=== PATIENT | male | born 1950 | race Caucasian/White ===

== ENCOUNTER 2018-12-27 00:43 | Inpatient (IN) | payer OTHER ==
[2018-12-27] VITALS (10 sets, daily range): BP systolic 121–169; BP diastolic 80–109; PULSE 65–94; RESP 18–20; Ht 165.1 cm; Wt 65.7 kg
[~2018-12-27] VITALS: Ht 165.1 cm; Wt 65.7 kg
[2018-12-27] MEDS ORDERED: SOD CHLORIDE 0.9% 500 ML IV STA (00:55)
[2018-12-27] MEDS ORDERED: LEVETIRACETAM 1000 MG (PMX) 100 ML IVPB ONE (01:30)
--- NOTE | 2018-12-27 01:33 | ERD ---
ER Documentation Chief Complaint Chief Complaint DEVIN GARCIA,from home,sz 15 min per EMS,Versed administered by EMS,KILO MEJIA This is a 68-year-old male with a reported history of seizures on Keppra who is presenting with a seizure. The patient reportedly had focal right-sided tonic- clonic shaking lasting over 15 minutes. The patient was given a total of 10 mg of Versed prior to arrival to the emergency department. The patient continued to seize when he first came to the emergency department, but it resolved prior to any medications being provided in the ER. The patient is currently altered and unable to provide any history. The patient does not have any facial droop, but he currently does not move the right side of his body where the seizure took place. The patient groans on painful stimulus, but he is confused and not currently making any comprehensible sounds. History and physical is limited secondary to altered mentation. ROS All systems reviewed and are negative except as per history of present illness. Allergies Allergies: Coded Allergies: Unknown: Unable to obtain (Unverified , 12/27/18) PMhx/Soc Limited secondary to altered mental status Medical and Surgical Hx: Unable to obtain Hx Neurological Disorder: Yes (Seizure disorder) Smoking Status: Unknown if ever smoked FmHx Unable to obtain secondary to altered mental status Physical Exam Vitals Vital Signs Date Temp Pulse Resp B/P (MAP) Pulse Ox O2 O2 Flow FiO2 Time Delivery Rate 12/27/18 84 18 123/93 100 Nasal 2.0 02:40 (103) Cannula 12/27/18 Nasal 2 01:42 Cannula 12/27/18 98.3 83 15 217/109 97 00:48 (145) Physical Exam Const: Well-developed, well-nourished, lethargic Head: Normocephalic, Atraumatic Eyes: Normal Conjunctiva. Pupils equal, round and reactive to light ENT: Normal External Ears, Nose and Mouth. Neck: Full range of motion. No meningismus. Resp: Clear to auscultation bilaterally, No wheezes, rales or rhonchi Cardio: Regular rate and rhythm. No murmurs, rubs or gallops Abd: Soft, non tender, non distended. Normal bowel sounds Skin: No petechiae or rashes Back: No midline tenderness. No CVA tenderness Ext: No cyanosis, or edema Neur: Lethargic. No facial droop. Opens eyes to painful stimulus. Makes incomprehensible sounds. Localizes the pain with the left side. Right-sided hemiparesis. Psych: Normal Mood and Affect Result Diagram: 12/27/1810312/27/18103 Results 24 hrs Laboratory Tests Test 12/27/18 00:30 12/27/18 00:57 12/27/18 01:04 12/27/18 02:30 Activated 31.6 Sec Partial Thrombopl ast Time Hemoglobin A1c 6.3 % Creatine Kinase 47 IU/L Creatinine Kinase 0.43 ng/ml MB (Mass) Bedside Glucose 113 mg/dL White Blood Count 4.2 10^3/ul Red Blood Count 4.95 10^6/ul Hemoglobin 14.3 g/dl Hematocrit 44.9 % Mean Corpuscular 90.7 fl Volume Mean Corpuscular 28.9 pg Hemoglobin Mean Corpuscular 31.8 g/dl Hemoglobin Concen t Red Cell 13.4 % Distribution Width Platelet Count 164 10^3/UL Mean Platelet 9.8 fl Volume Immature 0.200 % Granulocytes % Neutrophils % 67.5 % Lymphocytes % 23.7 % Monocytes % 6.2 % Eosinophils % 2.2 % Basophils % 0.2 % Nucleated Red 0.0 /100WBC Blood Cells % Immature 0.010 10^3/ul Granulocytes # Neutrophils # 2.8 10^3/ul Lymphocytes # 1.0 10^3/ul Monocytes # 0.3 10^3/ul Eosinophils # 0.1 10^3/ul Basophils # 0.0 10^3/ul Nucleated Red 0.0 10^3/ul Blood Cells # Prothrombin Time 13.3 Sec Prothrombin Time 1.0 Ratio INR International 1.00 Normalized Ratio Sodium Level 142 mmol/L Potassium Level 3.8 mmol/L Chloride Level 105 mmol/L Carbon Dioxide 21 mmol/L Level Anion Gap 16 Blood Urea 18 mg/dl Nitrogen Creatinine 1.24 mg/dl Est Glomerular 58 mL/min Filtrat Rate mL/min Glucose Level 109 mg/dl Calcium Level 9.0 mg/dl Total Bilirubin 0.3 mg/dl Direct Bilirubin 0.00 mg/dl Indirect 0.3 mg/dl Bilirubin Aspartate Amino 24 IU/L Transf (AST/SGOT) Alanine 20 IU/L Aminotransferase (ALT/SGPT) Alkaline 57 IU/L Phosphatase Troponin I 0.012 ng/ml Total Protein 6.6 g/dl Albumin 3.7 g/dl Globulin 2.90 g/dl Albumin/Globulin 1.27 Ratio Ethyl Alcohol < 10.0 mg/dl Level Urine Color YELLOW Urine Clarity CLEAR Urine pH 6.0 Urine Specific 1.010 [place] Urine Ketones NEGATIVE mg/dL Urine Nitrite NEGATIVE mg/dL Urine Bilirubin NEGATIVE mg/dL Urine NEGATIVE mg/dL Urobilinogen Urine Leukocyte NEGATIVE Jamie/ul Esterase Urine Hemoglobin NEGATIVE mg/dL Urine Glucose 1+ mg/dL Urine Total NEGATIVE mg/dl Protein Urine Opiates Negative Screen Urine Negative Barbiturates Urine Negative Amphetamines Screen Urine Positive Benzodiazepines Screen Urine Cocaine Negative Screen Urine Negative Cannabinoids Current Medications Medications Dose Sig/Rao Start Time Status Last (Trade) Ordered Route PRN Stop Time Admin Dose Reason Admin Sodium 500 ml @ Q1H STAT 12/27/18 DC 12/27/18 Chloride 500 mls/hr IV 00:55 01:11 12/27/18 01:54 100 ml @ ONCE ONCE 12/27/18 DC 12/27/18 Levetiracetam 400 mls/hr IVPB 01:30 01:51 12/27/18 01:44 Aspirin 324 mg ONCE ONCE 12/27/18 (Aspirin) PO 04:30 12/27/18 04:31 Ondansetron 4 mg ER BRIDGE 12/27/18 HCl (Zofran PRN IV 04:30 Inj) NAUSEA/VOMITI 12/28/18 04:29 NG 650 mg ER BRIDGE 12/27/18 Acetaminophen PRN PO 04:30 (Tylenol .MILD PAIN 12/28/18 04:29 Tab) 1-3 OR TEMP Procedures/MDM MDM The patient's presentation warrants further investigation. Previous medical records, if available, were reviewed. LABS The patient's laboratory testing was obtained and reviewed. No emergent treatment was required unless described below. CBC: No E/o of systemic infection or severe anemia or thrombocytopenia CMP: No E/o severe acidosis or alkalosis or renal failure or liver disease or diabetic ketoacidosis PT/INR: No E/o significant coagulopathy Troponin: No E/o acute ischemia Urine: No E/o acute infection or hematuria Tox: No E/o alcohol abuse. E/o benzodiazepine use, given by EMS. No other illicit drug use. EKG EKG read by me: Rate/Rhythm: Regular rate and rhythm at a rate of 77 bpm Intervals: Normal Daisy: Normal Impression: Nonspecific repolarization changes without evidence of acute ischemia or arrhythmia IMAGING Imaging and Radiology interpretation reviewed. CXR FINDINGS: The patient status post sternotomy. Heart is enlarged.. There is no congestive heart failure.. There is hypoventilation with atelectasis greatest at the right lower lobe.. There is no pleural effusion. There is no pneumothorax. The osseous structures are unremarkable. IMPRESSION: Cardiomegaly. Hypoventilation with basilar atelectasis. Status post sternotomy. Electronically viewed and signed by .Monroe Humphrey MD, on 12/27/2018 01:47 CT Head 1. Large old left middle cerebral artery infarct with extensive left frontal, insular, temporal and parietal encephalomalacia. Hyperdense branch of the left middle cerebral artery within the sylvian fissure, likely related to the old infarct. 2. No acute intracranial stroke or hemorrhage. Correlation with prior outside study or MRI is recommended if clinically indicated.. 3. Nonspecific white matter changes most commonly seen with microvascular ischemic disease. Findings reported to Dr. Pemberton on 12/27/2018 1:35:05 AM. Electronically viewed and signed by .Monroe Humphrey MD, MD on 12/27/2018 01:46 TREATMENT/DISPOSITION The patient presents status post seizure. The patient seizure lasted 15-20 minutes, which meets criteria for status epilepticus. The patient did receive 10 mg of Versed prior to arrival. When the patient first arrived, he was a ctively seizing and I was unable to complete any full neurologic exam. The patient seizing did ultimately stop and he was assessed thoroughly. The patient's GCS is currently 9. The patient appears to be in a postictal state at this time. He is maintaining his airway without issue. I do not feel the patient requires intubation. On examination, the patient has right-sided hemiparesis. This could be related to Eugenio's paralysis after a seizure. However, a code stroke was called to evaluate for this possibility. The patient CT does not reveal any obvious large vessel occlusion. The neurologist evaluated the patient, the patient's symptoms are actually improving. The patient was able to move the right side of his body again. The patient's mentation was also clearing. He agreed with the likely possibility of Eugenio's paralysis, but did recommend continued observation. The patient was given a dose of aspirin in the emergency department as I cannot definitively rule out a TIA. The patient is not a TPA or thrombectomy candidate. The patient was also bolused with Keppra given his seizure this evening. I do not see any evidence of intracranial hemorrhage. CRITICAL CARE NOTE Time: 35 minutes excluding all billable procedures. Treatments/Evaluations: The patient was at risk of hemodynamic compromise. Timing of critical care involved close serial monitoring, evaluation of the patient's medical record including previous records & current laboratory/imaging studies, potential interventions for prevention of hemodynamic/ cardiopulmonary/ neurologic compromise, maintaining tight fluid balance, and any discussions with the family and/or consultants regarding the patient's status and prognosis. ADMISSION At this time, I feel that the patient requires admission for further evaluation and management. The patient will be admitted to [Panel] in accordance with the patient's insurance. The patient was accepted by Dr. Tatum at 0422AM on 12/27/2018. Disclaimer: Inadvertent spelling and grammatical errors are likely due to EHR/dictation software use and do not reflect on the overall quality of patient care. Note that the electronic time recorded on this note does not necessarily reflect the actual time of the patient encounter. 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
--- NOTE | 2018-12-27 02:26 | STROKE ---
Date/Time of Note Date/Time of Note DATE: 12/27/18 TIME: 02:25 Patient Information General Patient location: emergency Arrival Date Age 68 Gender male Weight 72.73 kg per EMS report POC Glucose Glucose Result Bedside Glucose - 72 Hours Test 12/27/18 00:57 Bedside Glucose 113 mg/dL (70-220) Vital Signs Vital Signs Vital Signs Date Temp Pulse Resp B/P (MAP) Pulse Ox O2 O2 Flow FiO2 Time Delivery Rate 12/27/18 Nasal 2 01:42 Cannula 12/27/18 98.3 83 15 217/109 97 00:48 (145) Patient History Current Medications Allergies: Coded Allergies: Unknown: Unable to obtain (Unverified , 12/27/18) Labs Coagulation Labs: Coagulation Test 12/27/18 00:30 Activated Partial Thromboplast Time 31.6 Sec (23.0-35.0) History & Physical History of Present Illness 68 M PMH L MCA LVO stroke LKW uncertain with witnessed GTC and post-ictal right hemiplegia NIH Stroke Scale NIH Stroke Scale [id number] Total Score: [id number] Date/Time Recorded DATE: 12/27/18 TIME: 02:25 Submitted By Bruno Cain t-PA Imaging Review Imaging Reviewed: No Date/Time Imaging Reviewed DATE: 12/27/18 TIME: 02:25 t-PA Administration Recommendation: No Weight 72.73 kg per EMS report Recommedation submitted by Bruno Cain Reason t-PA not Recommended Acute stroke not suspected Recommendations Recommendation 68 M with remote left MCA LVO stroke and seizure disorder on Keppra. Had breakthrough seizure with post-ictal right hemiplegia that is resolving. - Would increase Keppra to 750 mg PO BID from home dose of 500 mg PO BID - Agree with observation to continued resolution of post-ictal right hemiparesis (Eugenio's paresis) - Further care per local Neurology consult team BRUNO CAIN MD Dec 27, 2018 02:26
[2018-12-27] MEDS ORDERED: ONDANSETRON 4 MG INJ IV PRN ×2 (04:30→05:00)
[2018-12-27] MEDS ORDERED: ACETAMINOPHEN 325 MG TAB PO PRN (04:30)
[2018-12-27] MEDS ORDERED: ASPIRIN 81 MG TAB PO ONE (04:30)
[2018-12-27] MEDS ORDERED: ACETAMINOPHEN 650 MG SUPP PR PRN (05:00)
[2018-12-27] MEDS ORDERED: NACL 0.9% 3 ML SYG IV SCH (05:00)
[2018-12-27] MEDS ORDERED: hydrALAzine 20 MG INJ IV PRN (05:00)
--- NOTE | 2018-12-27 07:40 | HP ---
Date/Time of Note Date/Time of Note DATE: 12/27/18 TIME: 07:28 Assessment/Plan VTE Prophylaxis SCD applied (from Nsg): Yes Pharmacological prophylaxis: NA/contraindicated Pharm contraindication: low risk/ambulating Lines/Catheters IV Catheter Type (from Nrsg): Saline Lock Assessment/Plan Hospital Course This is a 68-year-old male being admitted to the telemetry floor for: #1 right-sided hemiplegia: CVA versus Eugenio's paralysis. CT scan does not show any acute normality's however there is evidence of previous left MCA stroke. Patient's right-sided hemiplegia appears to be improving. Patient was seen and examined telemetry neurology recommendation that this patient likely had a nakita kthrough seizure with postictal right hemiplegia. Recommendation was to increase patient's home Keppra to 750 mg p.o. twice daily. He did receive a dose of Keppra 1000 mg IV x1. At the current time will monitor the patient closely. Neurochecks every 4 hours, seizure precautions. Fall precautions. Will obtain an MRI of the brain with and without contrast. Will consult neurology will check a hemoglobin A1c, lipid panel, TSH. PRN Ativan for seizures. Permissive hypertension for the first 24 hours. Urine drug screen was negative, aside from benzos however this likely was from the Versed that he received in the ambulance. PT OT speech evaluation. check echo with bubble study. #2 history of previous CVA: CT scan of the brain showed: Large old left middle cerebral artery infarct with extensive left frontal, insular, temporal and parietal encephalomalacia. Hyperdense branch of the left middle cerebral artery within the sylvian fissure, likely related to the old infarct. Continue Keppra. #3 Hypertensive urgency: Patient did present with elevated blood pressures in the 200 however this did improve without any blood pressures. At the current time will provide permissive hypertension. Will monitor closely. PRN hydralazine as indicated. #4 question CAD: has scar down anterior chest, hx of CABG? will need to corrobrate with family, patient . #5 DVT GI prophylaxis: SCDs, no GI prophylaxis indicated Further treatment strategy will be implemented as per the clinical course Will need to corroborate with family in the a.m. regarding patient's further h istory. Result Diagram: 12/27/1810312/27/18 010 Results 24hrs Laboratory Tests Test 12/27/18 00:30 12/27/18 00:57 12/27/18 01:04 12/27/18 02:30 Activated 31.6 Partial Thromboplast Time Hemoglobin A1c 6.3 H Creatine Kinase 47 Creatinine Kinase MB 0.43 (Mass) Bedside Glucose 113 White Blood Count 4.2 L Red Blood Count 4.95 Hemoglobin 14.3 Hematocrit 44.9 Mean Corpuscular 90.7 Volume Mean Corpuscular 28.9 L Hemoglobin Mean Corpuscular 31.8 L Hemoglobin Concent Red Cell 13.4 Distribution Width Platelet Count 164 Mean Platelet Volume 9.8 Immature 0.200 Granulocytes % Neutrophils % 67.5 Lymphocytes % 23.7 Monocytes % 6.2 Eosinophils % 2.2 Basophils % 0.2 Nucleated Red Blood 0.0 Cells % Immature 0.010 Granulocytes # Neutrophils # 2.8 Lymphocytes # 1.0 Monocytes # 0.3 Eosinophils # 0.1 Basophils # 0.0 Nucleated Red Blood 0.0 Cells # Prothrombin Time 13.3 Prothrombin Time 1.0 Ratio INR International 1.00 Normalized Ratio Sodium Level 142 Potassium Level 3.8 Chloride Level 105 Carbon Dioxide Level 21 Anion Gap 16 H Blood Urea Nitrogen 18 Creatinine 1.24 Est Glomerular 58 L Filtrat Rate mL/min Glucose Level 109 Calcium Level 9.0 Total Bilirubin 0.3 Direct Bilirubin 0.00 Indirect Bilirubin 0.3 Aspartate Amino 24 Transf (AST/SGOT) Alanine 20 Aminotransferase (AL T/SGPT) Alkaline Phosphatase 57 Troponin I 0.012 Total Protein 6.6 Albumin 3.7 Globulin 2.90 Albumin/Globulin 1.27 Ratio Ethyl Alcohol Level < 10.0 H Urine Color YELLOW Urine Clarity CLEAR Urine pH 6.0 Urine Specific 1.010 [place] Urine Ketones NEGATIVE Urine Nitrite NEGATIVE Urine Bilirubin NEGATIVE Urine Urobilinogen NEGATIVE Urine Leukocyte NEGATIVE Esterase Urine Hemoglobin NEGATIVE Urine Glucose 1+ H Urine Total Protein NEGATIVE Urine Opiates Screen Negative Urine Barbiturates Negative Urine Amphetamines Negative Screen Urine Positive Benzodiazepines Screen Urine Cocaine Screen Negative Urine Cannabinoids Negative HPI/ROS Admit Date/Time Admit Date/Time Dec 27, 2018 at 04:28 Hx of Present Illness Brought in via ambulance Chief complaint: Seizure at home The following history was obtained from the ED physician documentation, history was attempted to be obtained by the patient however he was giving a limited history given his postictal state. This is a 68-year-old male with a reported history of seizures on Keppra who is presenting with a seizure. The patient reportedly had focal right-sided tonic- clonic shaking lasting over 15 minutes. The patient was given a total of 10 mg of Versed prior to arrival to the emergency department. When he arrived to the emergency department he was still seizing however the seizure ended up resolving on its own without any additional medication needed. Patient was not noted to have any facial droop. He was noted to have at that time not being able to move the right side of his body. He was having at that time groans to painful stimuli however he was not able to carry out a conversation. Upon my examination of the patient at the bedside he is able to follow commands and lift up his bilateral extremities however there is a noticeable decrease in strength of the right upper and lower extremities compared to the left. He is able to answer simple questions and he is oriented to person. He stated that he is currently at a doctor's office and he was unable to give me his birthdate. Patient was evaluated by tele neurology as well and recommendation was to have a further neurological workup and to increase his Keppra to 750 mg p.o. 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 Allergies: Unable to obtain Medications: See FRANCINE TERESA Subjective hx not possible: other (Only able to respond to simple commands at the current time as patient is postictal) PMH/Family/Social Past Medical History Seizure history, CAD? Medications Current Medications Ondansetron HCl (Zofran Inj) 4 mg ER BRIDGE PRN IV NAUSEA/VOMITING; Start 12/27/18 at 04:30; Stop 12/28/18 at 04:29 Acetaminophen (Tylenol Tab) 650 mg ER BRIDGE PRN PO .MILD PAIN 1-3 OR TEMP; Start 12/27/18 at 04:30; Stop 12/28/18 at 04:29 Levetiracetam (Keppra) 750 mg BID PO ; Start 12/27/18 at 13:00 IV Flush (NS 3 ml) 3 ml PER PROTOCOL IV ; Start 12/27/18 at 05:00 Lorazepam (Ativan) 1 mg Q2H PRN IV SEIZURES; Start 12/27/18 at 05:00 Ondansetron HCl (Zofran Inj) 4 mg Q6H PRN IV NAUSEA/VOMITING; Start 12/27/18 at 05:00 Acetaminophen (Tylenol Supp) 650 mg Q6H PRN [place] .PAIN 1-3 OR TEMP; Start 12/27/18 at 05:00 Hydralazine HCl (Apresoline) 10 mg Q4H PRN IV ELEVATED BLOOD PRESSURE; Start 12/27/18 at 05:00 Coded Allergies: No Known Allergy (Unverified , 12/27/18) Past Surgical History Unknown, unable to obtain, possible CABG as her surgical scar down anterior chest Family History Significant Family History: other (Unknown, unable to obtain) Social History Unknown, unable to obtain Smoking Status: Unknown if ever smoked Exam/Review of Systems Vital Signs Vitals Vital Signs Date Temp Pulse Resp B/P (MAP) Pulse Ox O2 O2 Flow FiO2 Time Delivery Rate 12/27/18 88 06:45 12/27/18 97.9 18 169/109 96 Room Air 06:10 (129) 12/27/18 2.0 02:40 Exam Exam General: Patient is a pleasant male currently lying in bed he does not appear to be in any acute distress HEENT: Atraumatic, normocephalic. The pupils are equal, round and reactive. Extraocular motor are intact Neck: Supple with full range of motion. No rigidity or meningismus Chest: Nontender Lungs: Clear to auscultation bilaterally no crackles rales or wheezing Heart: Normal S1-S2, Regular rhythm and rate. No murmur, S3, or S4 Abdomen: Soft , nontender, nondistended , bowel sounds are present. No guarding no rebound tenderness , No masses or organomegaly. No costovertebral temporal angle mass Extremities: Normal to inspection, no edema no cyanosis Neurologic: He is awake and alert and oriented x1. He does state that he is in the doctor's office. He is not able to give me as per day. He is able to follow simple commands but his speech is not compensable at the current time. He is able to move all 4 extremities however his strength is approximately 3 out of 5 in the right upper and lower extremity. LINDSEY HUNTER Dec 27, 2018 07:39
[2018-12-27] MEDS: LORAZEPAM 2 MG INJ IV PRN ×2 (09:24→20:25)
--- NOTE | 2018-12-27 09:56 | QN ---
Documentation Comment 68-year-old male with a history of CVA, seizure disorders, here with break through seizure/postictal right hemiplegia. Patient symptoms improving. Neurology managing antiseizure medications. Patient is getting echo with bubble study, per plasma processing technician there is also evidence of shunting. As such, I have placed a consult with technical sales consultant. Case discussed with DR.Gordon ACKERMAN,KELY Mcgrath NP Dec 27, 2018 09:56
--- NOTE | 2018-12-27 10:04 | CONS ---
Consultation Date/Type/Reason Admit Date/Time Dec 27, 2018 at 04:28 Type of Consult Neurology Date/Time of Note DATE: 12/27/18 TIME: 10:04 Exam Vital Signs Vitals Vital Signs Date Temp Pulse Resp B/P (MAP) Pulse Ox O2 O2 Flow FiO2 Time Delivery Rate 12/27/18 93 08:01 12/27/18 98.6 18 162/89 96 07:45 (113) 12/27/18 Room Air 06:10 12/27/18 2.0 02:40 Intake and Output 12/26/18 12/26/18 12/27/18 1515:00 23:00 07:00 IntakeIntake Total 0 ml OutputOutput Total 400 ml BalanceBalance -400 ml SURENDRA BECK NP Dec 27, 2018 10:04
--- NOTE | 2018-12-27 11:53 | CONS ---
Assessment/Plan Assessment/Plan Hospital Course 68 M c/ reported Hx of L MCA stroke, ? c/b epilepsy ?, who presents for evaluation of R hemiparesis and hemisensory loss following a reported seizure.. 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 Recurrent ischemia is not yet excluded.. P: Clarify prior seizure Hx MRI brain for further characterization Baseline EEG Add [place] to continue Keppra 500mg bid for now Ativan iv prn prolonged seizure or cluster Continue medical management and supportive care per primary Consultation Date/Type/Reason Admit Date/Time Dec 27, 2018 at 04:28 Type of Consult Neurology Reason for Consultation seizure Requesting Provider: LINDSEY HUNTER Date/Time of Note DATE: 12/27/18 TIME: 11:53 Hx of Present Illness This is a 68-year-old male with a reported history of seizures on Keppra who is presenting with a seizure. The patient reportedly had focal right-sided tonic- clonic shaking lasting over 15 minutes. The patient was given a total of 10 mg of Versed prior to arrival to the emergency department. When he arrived to the emergency department he was still seizing however the seizure ended up resolving on its own without any additional medication needed. Patient was not noted to have any facial droop. He was noted to have at that time not being able to move the right side of his body. He was having at that time groans to painful sti muli however he was not able to carry out a conversation. Upon my examination of the patient at the bedside he is able to follow commands and lift up his bilateral extremities however there is a noticeable decrease in strength of the right upper and lower extremities compared to the left. He is able to answer simple questions and he is oriented to person. He stated that he is currently at a doctor's office and he was unable to give me his birthdate. Patient was evaluated by tele neurology as well and recommendation was to have a further neurological workup and to increase his Keppra to 750 mg p.o. 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 Allergies: Unable to obtain 12 PT ROS is ow neg Exam/Review of Systems Exam Vitals Vital Signs Date Temp Pulse Resp B/P (MAP) Pulse Ox O2 O2 Flow FiO2 Time Delivery Rate 12/27/18 98.2 80 18 141/83 96 11:36 (102) 12/27/18 Room Air 06:10 12/27/18 2.0 02:40 Intake and Output 12/26/18 12/26/18 12/27/18 1515:00 23:00 07:00 IntakeIntake Total 0 ml OutputOutput Total 400 ml BalanceBalance -400 ml Exam PE: Gen Appearance: No Apparent Distress HEENT: Normocephalic Cardiovascular: Regular rate Lungs: Clear bilaterally Abdomen: Soft Extremities: Dry NE: The patient was drowsy and oriented, and able to recall all three words after a five minute delay. Language was normal. Fund of knowledge was somewhat limited. Pupils were equal and reactive to light. There was no afferent pupillary defect. Visual shaver were normal. Funduscopic examination was limited. Extra-ocular movements were full. Ptosis was absent. There was no nystagmus. Facial sensation was reduced on the right.. Face was symmetric with normal strength. Hearing was intact. Palate movements were normal. Neck strength was normal. There was normal tongue bulk and speed of movement. Tone was normal. Muscle bulk was normal. I did not see fasciculations. R arm and leg were weak. Vibration sensation was reduced on the right. Temperature and pinprick sensation was reduced on the right. Rapid alternating movements were normal. There was no dysmetria. There was no intention tremor. Gait was deferred due to bedrest. Arm and leg reflexes were symmetric. Christian's sign was absent. Plantar responses were flexor. Results Result Diagram: 12/27/18 01012/27/18 0104 Results 24hrs Laboratory Tests Test 12/27/18 00:30 12/27/18 00:57 12/27/18 01:04 12/27/18 02:30 Activated 31.6 Partial Thromboplast Time Hemoglobin A1c 6.3 H Creatine Kinase 47 Creatinine Kinase MB 0.43 (Mass) Bedside Glucose 113 White Blood Count 4.2 L Red Blood Count 4.95 Hemoglobin 14.3 Hematocrit 44.9 Mean Corpuscular 90.7 Volume Mean Corpuscular 28.9 L Hemoglobin Mean Corpuscular 31.8 L Hemoglobin Concent Red Cell 13.4 Distribution Width Platelet Count 164 Mean Platelet Volume 9.8 Immature 0.200 Granulocytes % Neutrophils % 67.5 Lymphocytes % 23.7 Monocytes % 6.2 Eosinophils % 2.2 Basophils % 0.2 Nucleated Red Blood 0.0 Cells % Immature 0.010 Granulocytes # Neutrophils # 2.8 Lymphocytes # 1.0 Monocytes # 0.3 Eosinophils # 0.1 Basophils # 0.0 Nucleated Red Blood 0.0 Cells # Prothrombin Time 13.3 Prothrombin Time 1.0 Ratio INR International 1.00 Normalized Ratio Sodium Level 142 Potassium Level 3.8 Chloride Level 105 Carbon Dioxide Level 21 Anion Gap 16 H Blood Urea Nitrogen 18 Creatinine 1.24 Est Glomerular 58 L Filtrat Rate mL/min Glucose Level 109 Calcium Level 9.0 Total Bilirubin 0.3 Direct Bilirubin 0.00 Indirect Bilirubin 0.3 Aspartate Amino 24 Transf (AST/SGOT) Alanine 20 Aminotransferase (AL T/SGPT) Alkaline Phosphatase 57 Troponin I 0.012 Total Protein 6.6 Albumin 3.7 Globulin 2.90 Albumin/Globulin 1.27 Ratio Ethyl Alcohol Level < 10.0 H Urine Color YELLOW Urine Clarity CLEAR Urine pH 6.0 Urine Specific 1.010 [place] Urine Ketones NEGATIVE Urine Nitrite NEGATIVE Urine Bilirubin NEGATIVE Urine Urobilinogen NEGATIVE Urine Leukocyte NEGATIVE Esterase Urine Hemoglobin NEGATIVE Urine Glucose 1+ H Urine Total Protein NEGATIVE Urine Opiates Screen Negative Urine Barbiturates Negative Urine Amphetamines Negative Screen Urine Positive Benzodiazepines Screen Urine Cocaine Screen Negative Urine Cannabinoids Negative Medications Medication Current Medications Ondansetron HCl (Zofran Inj) 4 mg ER BRIDGE PRN IV NAUSEA/VOMITING; Start 12/27/18 at 04:30; Stop 12/28/18 at 04:29 Acetaminophen (Tylenol Tab) 650 mg ER BRIDGE PRN PO .MILD PAIN 1-3 OR TEMP; Start 12/27/18 at 04:30; Stop 12/28/18 at 04:29 Levetiracetam (Keppra) 750 mg BID PO ; Start 12/27/18 at 13:00 IV Flush (NS 3 ml) 3 ml PER PROTOCOL IV ; Start 12/27/18 at 05:00 Lorazepam (Ativan) 1 mg Q2H PRN IV SEIZURES Last administered on 12/27/18at 09:24; Admin Dose 1 MG; Start 12/27/18 at 05:00 Ondansetron HCl (Zofran Inj) 4 mg Q6H PRN IV NAUSEA/VOMITING; Start 12/27/18 at 05:00 Acetaminophen (Tylenol Supp) 650 mg Q6H PRN [place] .PAIN 1-3 OR TEMP; Start 12/27/18 at 05:00 Hydralazine HCl (Apresoline) 10 mg Q4H PRN IV ELEVATED BLOOD PRESSURE; Start 12/27/18 at 05:00 Past Medical History reviewed Medications Current Medications Ondansetron HCl (Zofran Inj) 4 mg ER BRIDGE PRN IV NAUSEA/VOMITING; Start 12/27/18 at 04:30; Stop 12/28/18 at 04:29 Acetaminophen (Tylenol Tab) 650 mg ER BRIDGE PRN PO .MILD PAIN 1-3 OR TEMP; Start 12/27/18 at 04:30; Stop 12/28/18 at 04:29 Levetiracetam (Keppra) 750 mg BID PO ; Start 12/27/18 at 13:00 IV Flush (NS 3 ml) 3 ml PER PROTOCOL IV ; Start 12/27/18 at 05:00 Lorazepam (Ativan) 1 mg Q2H PRN IV SEIZURES Last administered on 12/27/18at 09:24; Admin Dose 1 MG; Start 12/27/18 at 05:00 Ondansetron HCl (Zofran Inj) 4 mg Q6H PRN IV NAUSEA/VOMITING; Start 12/27/18 at 05:00 Acetaminophen (Tylenol Supp) 650 mg Q6H PRN [place] .PAIN 1-3 OR TEMP; Start 12/27/18 at 05:00 Hydralazine HCl (Apresoline) 10 mg Q4H PRN IV ELEVATED BLOOD PRESSURE; Start 12/27/18 at 05:00 Allergies: Coded Allergies: Unknown: Unable to obtain (Unverified , 12/27/18) Past Surgical History reviewed Social History Smoking Status: Unknown if ever smoked SURENDRA BECK NP Dec 27, 2018 11:53 DIEUDONNE BRAMBILA Dec 27, 2018 11:59
--- NOTE | 2018-12-27 12:21 | RADRPT ---
Echocardiogram Report Patient Name: EDITH PAYNEPatient ID: [id number] : 1950 (68y 5m)Study Date: 12/27/2018 9:27:39 AM Gender: MAccession #: [id number] Tech: LE Location: Ref.Physician: LINDSEY HUNTER Height(Cm): BSA: Weight(Kg): Quality: GoodAccount #: Procedures: Echocardiographic Report: Transthoracic echocardiogram with complete 2D, M-Mode, and doppler examination. Indications: Cerebrovascular Accident. Measurements: 2D/M Mode Doppler Measurement Value Normal Range Measurement Value Normal Range LVIDd 2D 4.1 [ 4.2 - 5.8 ] cm RENETTA Vmax 2.0 [ 2.0 - 4.0 ] cm2 LVIDs 2D 3.0 [ 2.5 - 4.0 ] cm AV Mean Joaquín 0.9 [ 70.0 - 90.0 ] cm/sec LVPWd 2D 1.3 [ 0.6 - 1.0 ] cm AV Mean PG 3.0 [ 2.0 - 4.0 ] mmHg IVSd 2D 1.3 [ 0.6 - 1.0 ] cm AV Peak Joaquín 1.3 [ 100.0 - 170.0 ] cm/sec IVS/LVPW 2D 1.0 ratio AV Peak PG 7.0 [ 2.0 - 9.0 ] mmHg LVOT Diam 2.0 [ 2.3 - 2.9 ] cm AV VTI 21.6 cm LVOT Area 3.1 cm2 LVOT Peak Joaquín 0.8 [ 70.0 - 110.0 ] cm/sec LVOT Peak PG 3.0 [ 2.0 - 6.0 ] mmHg MV E Peak Joaquín 0.7 [ 60.0 - 130.0 ] cm/sec MV A Peak Joaquín 1.0 [ 100.0 - 120.0 ] cm/sec MV E/A 0.6 [ 0.8 - 1.5 ] ratio MV Decel Time 243 [ 104 - 258 ] msec Lat E` Joaquín 0.1 [ 10.0 - 15.0 ] cm/sec Med E` Joaquín 0.0 cm/sec MV E/A 0.6 [ 0.8 - 1.5 ] ratio PV Peak Joaquín 0.6 [ 40.0 - 80.0 ] cm/sec PV Peak PG 2.0 mmHg Findings: Left Ventricle: Normal left ventricular systolic function. Normal left ventricular cavity size. Mild concentric left ventricular hypertrophy. Ejection fraction is visually estimated at 55-60 %. Tissue Doppler/Mitral Doppler indices are consistent with impaired relaxation (Stage I diastolic dysfunction). Right Ventricle: Normal right ventricular size. Normal right ventricular systolic function. Left Atrium: There is mild enlargement of left atrium. Right Atrium: The right atrium is normal in size. Atrial Septum: Bubble study was performed with and with out valsalva indicating evidence of intra atrial shunt. Mitral Valve: Normal appearance of the mitral valve. Mild mitral annular calcification. Mild mitral valve regurgitation. Aortic Valve: Normal appearance of the aortic valve. No significant aortic stenosis or insufficiency. Tricuspid Valve: Normal appearance and function of the tricuspid valve with trace physiologic regurgitation. Unable to obtain RVSP due to minimal presence of tricuspid regurgitation. Pulmonic Valve: Normal pulmonic valve appearance. There is trace pulmonic regurgitation. Pericardium: Normal pericardium with no significant pericardial effusion. Aorta: Normal aortic root. IVC: Normal size and normal respiratory collapse consistent with normal right atrial pressure. Conclusions: Bubble study was performed with and with out valsalva indicating evidence of intra atrial shunt. Normal left ventricular systolic function. Normal left ventricular cavity size. Mild concentric left ventricular hypertrophy. Ejection fraction is visually estimated at 55-60 %. Tissue Doppler/Mitral Doppler indices are consistent with impaired relaxation (Stage I diastolic dysfunction). No significant valvular stenosis or regurgitation seen. Unable to obtain RVSP due to minimal presence of tricuspid regurgitation. Normal size and normal respiratory collapse consistent with normal right atrial pressure. Electronically Signed By: Sohail Novak 2018-12-27 12:21:21 PST
--- NOTE | 2018-12-27 12:43 | CONS ---
Assessment/Plan Assessment/Plan Hospital Course (Demo Recall) Status epilepticus: now resolved H/o left MCA CVA 10/2018 ASD vs PFO: positive bubble study on echo. Will need to be evaluated for closure as outpt at tertiary center CAD s/p CABG 09/2018 HTN: very elevated on admission 217/109, now 140s H/o seizures -outpt referral for PFO/ASD closure -ASA 325mg with recent CABG -lipitor 80mg -metoprolol 25mg BID -seizure meds/management per neuro Consultation Date/Type/Reason Admit Date/Time Dec 27, 2018 at 04:28 Date of Consultation: Dec 27, 2018 Type of Consult Cardiology Reason for Consultation Abnormal echo with bubble Requesting Provider: KELY ACKERMAN NP Date/Time of Note DATE: 12/27/18 TIME: 12:36 Hx of Present Illness 68 yo M with a h/o CAD s/p CABG 09/2018 per pt and CVA 10/2018 per pt, HTN, seizures, who presented in status epilepticus. He was stabilized on antiepileptics. He had right hemiparesis which was thought to be from the seizures and CT showed an old left MCA stroke. The pt is able to respond and follow commands. He has expressive aphasia but is able to give some history. He has no complaints at this time including chest pain, SOB,headaches, etc. per HPI Past Medical History per HPI Medications Current Medications Ondansetron HCl (Zofran Inj) 4 mg ER BRIDGE PRN IV NAUSEA/VOMITING; Start 12/27/18 at 04:30; Stop 12/28/18 at 04:29 Acetaminophen (Tylenol Tab) 650 mg ER BRIDGE PRN PO .MILD PAIN 1-3 OR TEMP; Start 12/27/18 at 04:30; Stop 12/28/18 at 04:29 Levetiracetam (Keppra) 750 mg BID PO ; Start 12/27/18 at 13:00 IV Flush (NS 3 ml) 3 ml PER PROTOCOL IV ; Start 12/27/18 at 05:00 Lorazepam (Ativan) 1 mg Q2H PRN IV SEIZURES Last administered on 12/27/18at 09:24; Admin Dose 1 MG; Start 12/27/18 at 05:00 Ondansetron HCl (Zofran Inj) 4 mg Q6H PRN IV NAUSEA/VOMITING; Start 12/27/18 at 05:00 Acetaminophen (Tylenol Supp) 650 mg Q6H PRN [place] .PAIN 1-3 OR TEMP; Start 12/27/18 at 05:00 Hydralazine HCl (Apresoline) 10 mg Q4H PRN IV ELEVATED BLOOD PRESSURE; Start 12/27/18 at 05:00 Allergies: Coded Allergies: Unknown: Unable to obtain (Unverified , 12/27/18) Social History Smoking Status: Unknown if ever smoked Exam/Review of Systems Exam Vitals Vital Signs Date Temp Pulse Resp B/P (MAP) Pulse Ox O2 O2 Flow FiO2 Time Delivery Rate 12/27/18 98.2 80 18 141/83 96 11:36 (102) 12/27/18 Room Air 06:10 12/27/18 2.0 02:40 Intake and Output 12/26/18 12/26/18 12/27/18 1515:00 23:00 07:00 IntakeIntake Total 0 ml OutputOutput Total 400 ml BalanceBalance -400 ml Constitutional: alert, oriented Psych: no complaints Head: normocephalic, atraumatic Eyes: nl conjunctiva Neck: supple; No jvd Respiratory: clear to auscultation; No crackles/rales Cardiovascular: regular rate and rhythm; No edema, No systolic murmur Gastrointestinal: soft, non-tender; No distended Musculoskeletal: nl extremities to inspection Neurological: nl mental status, nl speech; No other (right arm and leg 2/5 strength ) Results Result Diagram: 12/27/18 01012/27/18 0104 Results 24hrs Laboratory Tests Test 12/27/18 00:30 12/27/18 00:57 12/27/18 01:04 12/27/18 02:30 Activated 31.6 Partial Thromboplast Time Hemoglobin A1c 6.3 H Creatine Kinase 47 Creatinine Kinase MB 0.43 (Mass) Bedside Glucose 113 White Blood Count 4.2 L Red Blood Count 4.95 Hemoglobin 14.3 Hematocrit 44.9 Mean Corpuscular 90.7 Volume Mean Corpuscular 28.9 L Hemoglobin Mean Corpuscular 31.8 L Hemoglobin Concent Red Cell 13.4 Distribution Width Platelet Count 164 Mean Platelet Volume 9.8 Immature 0.200 Granulocytes % Neutrophils % 67.5 Lymphocytes % 23.7 Monocytes % 6.2 Eosinophils % 2.2 Basophils % 0.2 Nucleated Red Blood 0.0 Cells % Immature 0.010 Granulocytes # Neutrophils # 2.8 Lymphocytes # 1.0 Monocytes # 0.3 Eosinophils # 0.1 Basophils # 0.0 Nucleated Red Blood 0.0 Cells # Prothrombin Time 13.3 Prothrombin Time 1.0 Ratio INR International 1.00 Normalized Ratio Sodium Level 142 Potassium Level 3.8 Chloride Level 105 Carbon Dioxide Level 21 Anion Gap 16 H Blood Urea Nitrogen 18 Creatinine 1.24 Est Glomerular 58 L Filtrat Rate mL/min Glucose Level 109 Calcium Level 9.0 Total Bilirubin 0.3 Direct Bilirubin 0.00 Indirect Bilirubin 0.3 Aspartate Amino 24 Transf (AST/SGOT) Alanine 20 Aminotransferase (AL T/SGPT) Alkaline Phosphatase 57 Troponin I 0.012 Total Protein 6.6 Albumin 3.7 Globulin 2.90 Albumin/Globulin 1.27 Ratio Ethyl Alcohol Level < 10.0 H Urine Color YELLOW Urine Clarity CLEAR Urine pH 6.0 Urine Specific 1.010 [place] Urine Ketones NEGATIVE Urine Nitrite NEGATIVE Urine Bilirubin NEGATIVE Urine Urobilinogen NEGATIVE Urine Leukocyte NEGATIVE Esterase Urine Hemoglobin NEGATIVE Urine Glucose 1+ H Urine Total Protein NEGATIVE Urine Opiates Screen Negative Urine Barbiturates Negative Urine Amphetamines Negative Screen Urine Positive Benzodiazepines Screen Urine Cocaine Screen Negative Urine Cannabinoids Negative Medications Medication Current Medications Ondansetron HCl (Zofran Inj) 4 mg ER BRIDGE PRN IV NAUSEA/VOMITING; Start 12/27/18 at 04:30; Stop 12/28/18 at 04:29 Acetaminophen (Tylenol Tab) 650 mg ER BRIDGE PRN PO .MILD PAIN 1-3 OR TEMP; Start 12/27/18 at 04:30; Stop 12/28/18 at 04:29 Levetiracetam (Keppra) 750 mg BID PO ; Start 12/27/18 at 13:00 IV Flush (NS 3 ml) 3 ml PER PROTOCOL IV ; Start 12/27/18 at 05:00 Lorazepam (Ativan) 1 mg Q2H PRN IV SEIZURES Last administered on 12/27/18at 0 9:24; Admin Dose 1 MG; Start 12/27/18 at 05:00 Ondansetron HCl (Zofran Inj) 4 mg Q6H PRN IV NAUSEA/VOMITING; Start 12/27/18 at 05:00 Acetaminophen (Tylenol Supp) 650 mg Q6H PRN [place] .PAIN 1-3 OR TEMP; Start 12/27/18 at 05:00 Hydralazine HCl (Apresoline) 10 mg Q4H PRN IV ELEVATED BLOOD PRESSURE; Start 12/27/18 at 05:00 PRISCA GRESHAM Dec 27, 2018 12:43
[2018-12-27] MEDS: ASPIRIN 325 MG TAB PO SCH (13:39)
[2018-12-27] MEDS: METOPROLOL 25 MG TAB PO SCH ×2 (13:40→20:20)
[2018-12-27] MEDS: LEVETIRACETAM 750 MG TAB PO SCH ×2 (13:40→20:19)
[2018-12-27] MEDS: ATORVASTATIN 80 MG TAB PO SCH (20:19)
--- NOTE | 2018-12-27 21:07 | EEG ---
EEG NOTE Report Details DATE OF TEST: 12/27/18 HISTORY: The patient is a 68-year-old M who presents with Right sided weakness following a seizure. This EEG is requested to evaluate for an epileptic disorder. SEDATION: None. CONDITIONS OF RECORDING: This EEG was recorded digitally on the [employer] machine, using the International 10-20 System of electrodes plus anterior temporals and [place]. STATES SAMPLED: Wakefulness and drowsiness. FINDINGS: The background is asymmetric...with a preponderance of slow activity over the left hemisphere. There is a posterior dominant rhythm in the right hemisphere.. Photic stimulation does not elicit any definite driving responses or epileptiform discharges. Hyperventilation was not performed. The patient became drowsy but did not pass into sleep. No epileptiform discharges were seen. IMPRESSION: Abnormal electroencephalogram due to: focal left hemispheric slowing. COMMENT: Left hemispheric slowing suggests an anomaly confined to that region. Clinical correlation is advised. DIEUDONNE BRAMBILA Dec 27, 2018 21:07
[2018-12-28] VITALS (11 sets, daily range): BP systolic 110–148; BP diastolic 60–76; PULSE 62–77; RESP 18–20
--- NOTE | 2018-12-28 09:00 | CONS ---
Assessment/Plan Assessment/Plan Hospital Course 68 M c/ reported Hx of L MCA stroke, ? c/b epilepsy ?, who presents for evaluation of R hemiparesis and hemisensory loss following a reported seizure.. Consistent w/ Eugenio's paralysis following a seizure.. MRI brain is negative for acute ischemia.. EEG was notable for L hemispheric slowing. P: OK to continue Keppra 750mg bid for now Ativan iv prn prolonged seizure or cluster Continue medical management and supportive care per primary Will follow clinically Consultation Date/Type/Reason Admit Date/Time Dec 27, 2018 at 04:28 Type of Consult Neurology Reason for Consultation seizure Requesting Provider: KELY ACKERMAN NP Date/Time of Note DATE: 12/28/18 TIME: 08:57 24 HR Interval Summary Free Text/Dictation Continues acute care Exam Vital Signs Vitals Vital Signs Date Temp Pulse Resp B/P (MAP) Pulse Ox O2 O2 Flow FiO2 Time Delivery Rate 12/28/18 74 08:54 12/28/18 98.2 18 110/62 98 07:31 (78) 12/27/18 Room Air 06:10 12/27/18 2.0 02:40 Intake and Output 12/27/18 12/27/18 12/28/18 1515:00 23:00 07:00 IntakeIntake Total 550 ml 500 ml OutputOutput Total 950 ml 200 ml BalanceBalance -400 ml 300 ml Exam PE: Gen Appearance: No Apparent Distress HEENT: Normocephalic Cardiovascular: Regular rate Abdomen: Soft Extremities: Dry NE: The patient was drowsy and oriented, and able to recall all three words after a five minute delay. Language was normal. Fund of knowledge was somewhat limited. Pupils were equal and reactive to light. There was no afferent pupillary defect. Visual shaver were normal. Funduscopic examination was limited. Extra-ocular movements were full. Ptosis was absent. There was no nystagmus. Facial sensation was reduced on the right.. Face was symmetric with normal strength. Hearing was intact. Palate movements were normal. Neck strength was normal. There was normal tongue bulk and speed of movement. Tone was normal. Muscle bulk was normal. I did not see fasciculations. R arm and leg were weak. Vibration sensation was reduced on the right. Temperature and pinprick sensation was reduced on the right. Rapid alternating movements were normal. There was no dysmetria. There was no intention tremor. Gait was deferred due to bedrest. Arm and leg reflexes were symmetric. Christian's sign was absent. Plantar responses were flexor. DIEUDONNE BRAMBILA Dec 28, 2018 08:59
[2018-12-28] MEDS: ASPIRIN 325 MG TAB PO SCH (09:05)
[2018-12-28] MEDS: METOPROLOL 25 MG TAB PO SCH ×2 (09:05→20:27)
[2018-12-28] MEDS: LEVETIRACETAM 750 MG TAB PO SCH ×2 (09:05→20:26)
--- NOTE | 2018-12-28 11:15 | PN ---
Date/Time of Note Date/Time of Note DATE: 12/28/18 TIME: 11:13 Assessment/Plan VTE Prophylaxis Risk score (from Ns)>0 risk: 6 SCD applied (from [facility]): Yes Pharmacological prophylaxis: NA/contraindicated Pharm contraindication: low risk/ambulating, renal impairment, other (ASA 325) Lines/Catheters IV Catheter Type (from [facility]): Saline Lock Assessment/Plan Hospital Course SUBJECTIVE: No acute overnight episodes. No seizure activities. OBJECTIVE: Vital signs-see below PHYSICAL EXAM: Constitutional: Well-developed, adequately built, lying in bed comfortably. Psych: nl mood/affect, no complaints Head: atraumatic, normocephalic Eyes: nl conjunctiva, nl sclera ENMT: mucosa pink and moist, nl external ears & nose Neck: non-tender, supple Respiratory: clear to auscultation, normal air movement Cardiovascular: nl pulses, regular rate and rhythm Gastrointestinal: non-tender, soft, bowel sounds active in all 4 quadrants. Musculoskeletal/extremities: +weakness to RUE/RLE. Normal pulses,no cyanosis, no edema. Neurological: Alert oriented 3,nl speech, nl strength Skin: nl turgor ASSESSMENT/PLAN:68-year-old male with a history of CVA, seizure disorders, here with breakthrough seizure/postictal right hemiplegia. 1. 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 2. Atrial septal defect versus patent foramen ovale. -Appreciate cardiology evaluation. -Recommended outpatient evaluation for closure at a tertiary center, case management order placed for referral. 3. 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 4. Hypertension -Now stable. -Continue beta-blockers 5. Coronary artery disease, status post CABG 09/2018 -Continue aspirin, statin, beta-blockers 6 Seizure disorders -Plan as outlined in #1 7. Acute kidney injury, likely hemodynamics -Avoid nephrotoxins and will monitor renal function. -We will give gentle hydration 8. Prediabetes with A1c 6.3 -Stable sugar trends. Diet changes advised. -Accucheck/ISS DVT prophylaxis: SCDs PUD prophylaxis: Not indicated CODE STATUS: Full code Diet: Carbohydrate controlled Disposition: Continue current management. Monitor patient in-house for another 24 hours for any further recurrence of symptoms. Case management to assist patient getting to an outpatient tertiary cardiology follow-up. Discussed plan of care with patient's son at bedside and questions answered to satisfaction. Patient was seen in collaboration with Dr. Cordero. Result Diagram: 12/28/18 0454 12/28/184 Results 24hrs Laboratory Tests Test 12/28/18 04:54 White Blood Count 7.0 # Red Blood Count 4.91 Hemoglobin 14.2 Hematocrit 43.5 Mean Corpuscular Volume 88.6 Mean Corpuscular Hemoglobin 28.9 L Mean Corpuscular Hemoglobin Concent 32.6 Red Cell Distribution Width 13.6 Platelet Count 162 Mean Platelet Volume 10.6 H Immature Granulocytes % 0.100 Neutrophils % 61.8 Lymphocytes % 26.7 Monocytes % 7.9 Eosinophils % 3.2 Basophils % 0.3 Nucleated Red Blood Cells % 0.0 Immature Granulocytes # 0.010 Neutrophils # 4.3 Lymphocytes # 1.9 Monocytes # 0.6 Eosinophils # 0.2 Basophils # 0.0 Nucleated Red Blood Cells # 0.0 Sodium Level 141 Potassium Level 3.9 Chloride Level 105 Carbon Dioxide Level 28 Anion Gap 8 # Blood Urea Nitrogen 19 Creatinine 1.25 H Est Glomerular Filtrat Rate mL/min 57 L Glucose Level 117 Hemoglobin A1c 6.3 H Calcium Level 9.8 Magnesium Level 1.8 Total Bilirubin 0.8 Direct Bilirubin 0.00 Indirect Bilirubin 0.8 Aspartate Amino Transf (AST/SGOT) 72 #H Alanine Aminotransferase (ALT/SGPT) 33 Alkaline Phosphatase 71 Total Protein 7.0 Albumin 3.8 Globulin 3.20 Albumin/Globulin Ratio 1.18 Triglycerides Level 73 Cholesterol Level 84 L LDL Cholesterol, Calculated 24 HDL Cholesterol 45 Cholesterol/HDL Ratio 1.8 Thyroid Stimulating Hormone (TSH) 0.100 L Exam/Review of Systems Exam Vitals Vital Signs Date Temp Pulse Resp B/P (MAP) Pulse Ox O2 O2 Flow FiO2 Time Delivery Rate 12/28/18 74 08:54 12/28/18 98.2 18 110/62 98 07:31 (78) 12/27/18 Room Air 06:10 12/27/18 2.0 02:40 Intake and Output 12/27/18 12/27/18 12/28/18 1515:00 23:00 07:00 IntakeIntake Total 550 ml 500 ml OutputOutput Total 950 ml 200 ml BalanceBalance -400 ml 300 ml Results Results 24hrs Laboratory Tests Test 12/28/18 04:54 White Blood Count 7.0 # Red Blood Count 4.91 Hemoglobin 14.2 Hematocrit 43.5 Mean Corpuscular Volume 88.6 Mean Corpuscular Hemoglobin 28.9 L Mean Corpuscular Hemoglobin Concent 32.6 Red Cell Distribution Width 13.6 Platelet Count 162 Mean Platelet Volume 10.6 H Immature Granulocytes % 0.100 Neutrophils % 61.8 Lymphocytes % 26.7 Monocytes % 7.9 Eosinophils % 3.2 Basophils % 0.3 Nucleated Red Blood Cells % 0.0 Immature Granulocytes # 0.010 Neutrophils # 4.3 Lymphocytes # 1.9 Monocytes # 0.6 Eosinophils # 0.2 Basophils # 0.0 Nucleated Red Blood Cells # 0.0 Sodium Level 141 Potassium Level 3.9 Chloride Level 105 Carbon Dioxide Level 28 Anion Gap 8 # Blood Urea Nitrogen 19 Creatinine 1.25 H Est Glomerular Filtrat Rate mL/min 57 L Glucose Level 117 Hemoglobin A1c 6.3 H Calcium Level 9.8 Magnesium Level 1.8 Total Bilirubin 0.8 Direct Bilirubin 0.00 Indirect Bilirubin 0.8 Aspartate Amino Transf (AST/SGOT) 72 #H Alanine Aminotransferase (ALT/SGPT) 33 Alkaline Phosphatase 71 Total Protein 7.0 Albumin 3.8 Globulin 3.20 Albumin/Globulin Ratio 1.18 Triglycerides Level 73 Cholesterol Level 84 L LDL Cholesterol, Calculated 24 HDL Cholesterol 45 Cholesterol/HDL Ratio 1.8 Thyroid Stimulating Hormone (TSH) 0.100 L Medications Medication Current Medications Levetiracetam (Keppra) 750 mg BID PO Last administered on 12/28/18at 09:05; Admin Dose 750 MG; Start 12/27/18 at 13:00 IV Flush (NS 3 ml) 3 ml PER PROTOCOL IV ; Start 12/27/18 at 05:00 Lorazepam (Ativan) 1 mg Q2H PRN IV SEIZURES Last administered on 12/27/18at 20:25; Admin Dose 1 MG; Start 12/27/18 at 05:00 Ondansetron HCl (Zofran Inj) 4 mg Q6H PRN IV NAUSEA/VOMITING; Start 12/27/18 at 05:00 Acetaminophen (Tylenol Supp) 650 mg Q6H PRN [place] .PAIN 1-3 OR TEMP; Start 12/27/18 at 05:00 Hydralazine HCl (Apresoline) 10 mg Q4H PRN IV ELEVATED BLOOD PRESSURE; Start 12/27/18 at 05:00 Aspirin (Aspirin) 325 mg DAILY PO Last administered on 12/28/18at 09:05; Admin Dose 325 MG; Start 12/27/18 at 13:00 Atorvastatin Calcium (Lipitor) 80 mg HS PO Last administered on 12/27/18at 20:19; Admin Dose 80 MG; Start 12/27/18 at 21:00 Metoprolol Tartrate (Lopressor) 25 mg BID PO Last administered on 12/28/18at 09:05; Admin Dose 25 MG; Start 12/27/18 at 13:00 KELY ACKERMAN NP Dec 28, 2018 11:15
[2018-12-28] MEDS ORDERED: GLUCAGON 1 MG INJ IM PRN (11:30)
[2018-12-28] MEDS ORDERED: DEXTROSE 50% 50 ML SYRINGE IV PRN ×2 (11:30)
[2018-12-28] MEDS ORDERED: GLUCOSE GEL 15 GRAM TUBE BUCCAL PRN (11:30)
[2018-12-28] MEDS ORDERED: GLUCOSE GEL 15 GRAM TUBE PO PRN ×2 (11:30)
--- NOTE | 2018-12-28 12:14 | CONS ---
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 Will need to be evaluated for closure as outpt at tertiary center CAD s/p CABG 04/2018 HTN: very elevated on admission 217/109, now controlled H/o seizures -outpt referral for PFO/ASD closure -ASA 325mg with recent CABG -lipitor 80mg -metoprolol 25mg BID -seizure meds/management per neuro -otherwise ok for discharge Consultation Date/Type/Reason Admit Date/Time Dec 27, 2018 at 04:28 Initial Consult Date 12/27/18 Type of Consult Cardiology Requesting Provider: KELY ACKERMAN NP Date/Time of Note DATE: 12/28/18 TIME: 12:10 24 HR Interval Summary Free Text/Dictation No events. No seizures. Son at bedside notes CABG and CVA were 04/2018 Exam/Review of Systems Exam Vitals Vital Signs Date Temp Pulse Resp B/P (MAP) Pulse Ox O2 O2 Flow FiO2 Time Delivery Rate 12/28/18 74 08:54 12/28/18 98.2 18 110/62 98 07:31 (78) 12/27/18 Room Air 06:10 12/27/18 2.0 02:40 Intake and Output 12/27/18 12/27/18 12/28/18 1515:00 23:00 07:00 IntakeIntake Total 550 ml 500 ml OutputOutput Total 950 ml 200 ml BalanceBalance -400 ml 300 ml Constitutional: alert, oriented Psych: no complaints, nl mood/affect Head: normocephalic, atraumatic Neck: supple; No jvd Respiratory: clear to auscultation; No crackles/rales Cardiovascular: regular rate and rhythm; No edema, No systolic murmur Gastrointestinal: soft, non-tender; No distended Neurological: nl mental status, nl speech, focal weakness (right hemiparesis ) Results Result Diagram: 12/28/184 12/28/184 Results 24hrs Laboratory Tests Test 12/28/18 04:54 White Blood Count 7.0 # Red Blood Count 4.91 Hemoglobin 14.2 Hematocrit 43.5 Mean Corpuscular Volume 88.6 Mean Corpuscular Hemoglobin 28.9 L Mean Corpuscular Hemoglobin Concent 32.6 Red Cell Distribution Width 13.6 Platelet Count 162 Mean Platelet Volume 10.6 H Immature Granulocytes % 0.100 Neutrophils % 61.8 Lymphocytes % 26.7 Monocytes % 7.9 Eosinophils % 3.2 Basophils % 0.3 Nucleated Red Blood Cells % 0.0 Immature Granulocytes # 0.010 Neutrophils # 4.3 Lymphocytes # 1.9 Monocytes # 0.6 Eosinophils # 0.2 Basophils # 0.0 Nucleated Red Blood Cells # 0.0 Sodium Level 141 Potassium Level 3.9 Chloride Level 105 Carbon Dioxide Level 28 Anion Gap 8 # Blood Urea Nitrogen 19 Creatinine 1.25 H Est Glomerular Filtrat Rate mL/min 57 L Glucose Level 117 Hemoglobin A1c 6.3 H Calcium Level 9.8 Magnesium Level 1.8 Total Bilirubin 0.8 Direct Bilirubin 0.00 Indirect Bilirubin 0.8 Aspartate Amino Transf (AST/SGOT) 72 #H Alanine Aminotransferase (ALT/SGPT) 33 Alkaline Phosphatase 71 Total Protein 7.0 Albumin 3.8 Globulin 3.20 Albumin/Globulin Ratio 1.18 Triglycerides Level 73 Cholesterol Level 84 L LDL Cholesterol, Calculated 24 HDL Cholesterol 45 Cholesterol/HDL Ratio 1.8 Thyroid Stimulating Hormone (TSH) 0.100 L Medications Medication Current Medications Levetiracetam (Keppra) 750 mg BID PO Last administered on 12/28/18at 09:05; Admin Dose 750 MG; Start 12/27/18 at 13:00 IV Flush (NS 3 ml) 3 ml PER PROTOCOL IV ; Start 12/27/18 at 05:00 Lorazepam (Ativan) 1 mg Q2H PRN IV SEIZURES Last administered on 12/27/18at 20:25; Admin Dose 1 MG; Start 12/27/18 at 05:00 Ondansetron HCl (Zofran Inj) 4 mg Q6H PRN IV NAUSEA/VOMITING; Start 12/27/18 at 05:00 Acetaminophen (Tylenol Supp) 650 mg Q6H PRN [place] .PAIN 1-3 OR TEMP; Start 12/27/18 at 05:00 Hydralazine HCl (Apresoline) 10 mg Q4H PRN IV ELEVATED BLOOD PRESSURE; Start 12/27/18 at 05:00 Aspirin (Aspirin) 325 mg DAILY PO Last administered on 12/28/18at 09:05; Admin Dose 325 MG; Start 12/27/18 at 13:00 Atorvastatin Calcium (Lipitor) 80 mg HS PO Last administered on 12/27/18at 20:19; Admin Dose 80 MG; Start 12/27/18 at 21:00 Metoprolol Tartrate (Lopressor) 25 mg BID PO Last administered on 12/28/18at 09:05; Admin Dose 25 MG; Start 12/27/18 at 13:00 Diagnostic Test (Pha) (Accu-Chek) 1 ea 02 XX ; Start 12/29/18 at 02:00 Insulin Aspart (Novolog Insulin Pen) NOVOLOG *MILD* ALGORITHM WITH MEALS BEDTIME SC ; Start 12/28/18 at 12:30 Miscellaneous Information 1 ea NOTE XX ; Start 12/28/18 at 11:30 Glucose (Glutose) 15 gm Q15M PRN PO DECREASED GLUCOSE; Start 12/28/18 at 11:30 Glucose (Glutose) 22.5 gm Q15M PRN PO DECREASED GLUCOSE; Start 12/28/18 at 11:30 Dextrose (D50w Syringe) 25 ml Q15M PRN IV DECREASED GLUCOSE; Start 12/28/18 at 11:30 Dextrose (D50w Syringe) 50 ml Q15M PRN IV DECREASED GLUCOSE; Start 12/28/18 at 11:30 Glucagon (Glucagen) 1 mg Q15M PRN IM DECREASED GLUCOSE; Start 12/28/18 at 11:30 Glucose (Glutose) 15 gm Q15M PRN BUCCAL DECREASED GLUCOSE; Start 12/28/18 at 1 1:30 PRISCA GRESHAM Dec 28, 2018 12:14
[2018-12-28] MEDS: INSULIN ASPART [NOVOLOG] 3 ML PEN SC SCH ×3 (12:30→20:30)
[2018-12-28] MEDS ORDERED: ATOR40TA68 PO (18:13)
[2018-12-28] MEDS ORDERED: METO-448 PO (18:13)
[2018-12-28] MEDS ORDERED: BACL10TA PO (18:13)
[2018-12-28] MEDS ORDERED: LISI10TA2 PO (18:13)
[2018-12-28] MEDS ORDERED: LEVE-5 PO (18:13)
[2018-12-28] MEDS ORDERED: PIOG15TA12 PO (18:13)
[2018-12-28] MEDS ORDERED: ASPI-903 PO (18:13)
[2018-12-28] MEDS ORDERED: METF500T24 PO (18:13)
[2018-12-28] MEDS: ATORVASTATIN 80 MG TAB PO SCH (20:27)
[2018-12-29] VITALS (11 sets, daily range): BP systolic 121–141; BP diastolic 60–83; PULSE 58–74; RESP 16–18
[2018-12-29] MEDS: ACCU-CHEK XX SCH (02:00)
[2018-12-29] MEDS: INSULIN ASPART [NOVOLOG] 3 ML PEN SC SCH ×4 (08:00→20:34)
[2018-12-29] MEDS: LEVETIRACETAM 750 MG TAB PO SCH ×2 (08:52→20:33)
[2018-12-29] MEDS: METOPROLOL 25 MG TAB PO SCH ×2 (08:52→20:34)
[2018-12-29] MEDS: ASPIRIN 325 MG TAB PO SCH (08:52)
--- NOTE | 2018-12-29 16:48 | CONS ---
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 Will need to be evaluated for closure as outpt at tertiary center CAD s/p CABG 04/2018 HTN: very elevated on admission 217/109, now controlled H/o seizures -outpt referral for PFO/ASD closure -ASA 325mg with recent CABG -lipitor 80mg -metoprolol 25mg BID -seizure meds/management per neuro -otherwise ok for discharge Consultation Date/Type/Reason Admit Date/Time Dec 27, 2018 at 04:28 Initial Consult Date 12/27/18 Type of Consult Cardiology Requesting Provider: KELY ACKERMAN NP Date/Time of Note DATE: 12/29/18 TIME: 16:47 24 HR Interval Summary Free Text/Dictation Doing well. No seizures. Possible d/c today pending neuro eval Exam/Review of Systems Exam Vitals Vital Signs Date Temp Pulse Resp B/P (MAP) Pulse Ox O2 O2 Flow FiO2 Time Delivery Rate 12/29/18 65 16:37 12/29/18 98.6 18 121/74 98 15:59 (90) 12/27/18 Room Air 06:10 12/27/18 2.0 02:40 Intake and Output 12/28/18 12/28/18 12/29/18 1515:00 23:00 07:00 IntakeIntake Total 700 ml 500 ml OutputOutput Total 1200 ml 800 ml BalanceBalance -500 ml -300 ml Constitutional: alert, oriented Psych: no complaints, nl mood/affect Neck: No jvd Respiratory: clear to auscultation; No crackles/rales Cardiovascular: regular rate and rhythm; No edema, No systolic murmur Gastrointestinal: soft, non-tender; No distended Neurological: nl mental status, nl speech; No nl strength (right hemiplegia ) Results Result Diagram: 12/29/189 12/29/189 Results 24hrs Laboratory Tests Test 12/28/18 20:22 12/29/18 04:59 12/29/18 08:04 12/29/18 11:51 Bedside Glucose 128 103 117 White Blood Count 6.1 Red Blood Count 5.24 Hemoglobin 15.2 Hematocrit 47.2 Mean Corpuscular 90.1 Volume Mean Corpuscular 29.0 Hemoglobin Mean Corpuscular 32.2 Hemoglobin Concent Red Cell 13.4 Distribution Width Platelet Count 151 Mean Platelet Volume 10.5 H Immature 0.300 Granulocytes % Neutrophils % 50.5 Lymphocytes % 37.3 Monocytes % 8.5 Eosinophils % 3.1 Basophils % 0.3 Nucleated Red Blood 0.0 Cells % Immature 0.020 Granulocytes # Neutrophils # 3.1 Lymphocytes # 2.3 Monocytes # 0.5 Eosinophils # 0.2 Basophils # 0.0 Nucleated Red Blood 0.0 Cells # Sodium Level 145 H Potassium Level 3.9 Chloride Level 105 Carbon Dioxide Level 27 Anion Gap 13 Blood Urea Nitrogen 20 Creatinine 1.27 H Est Glomerular 56 L Filtrat Rate mL/min Glucose Level 114 Calcium Level 10.0 Medications Medication Current Medications Levetiracetam (Keppra) 750 mg BID PO Last administered on 12/29/18 08:52; Admin Dose 750 MG; Start 12/27/18 at 13:00 IV Flush (NS 3 ml) 3 ml PER PROTOCOL IV ; Start 12/27/18 at 05:00 Lorazepam (Ativan) 1 mg Q2H PRN IV SEIZURES Last administered on 12/27/18 20:25; Admin Dose 1 MG; Start 12/27/18 at 05:00 Ondansetron HCl (Zofran Inj) 4 mg Q6H PRN IV NAUSEA/VOMITING; Start 12/27/18 at 05:00 Acetaminophen (Tylenol Supp) 650 mg Q6H PRN [place] .PAIN 1-3 OR TEMP; Start 12/27/18 at 05:00 Hydralazine HCl (Apresoline) 10 mg Q4H PRN IV ELEVATED BLOOD PRESSURE; Start 12/27/18 at 05:00 Aspirin (Aspirin) 325 mg DAILY PO Last administered on 12/29/18 08:52; Admin Dose 325 MG; Start 12/27/18 at 13:00 Atorvastatin Calcium (Lipitor) 80 mg HS PO Last administered on 12/28/18 20:27; Admin Dose 80 MG; Start 12/27/18 at 21:00 Metoprolol Tartrate (Lopressor) 25 mg BID PO Last administered on 12/29/18 08:52; Admin Dose 25 MG; Start 12/27/18 at 13:00 Diagnostic Test (Pha) (Accu-Chek) 1 ea 02 XX ; Start 12/29/18 at 02:00 Insulin Aspart (Novolog Insulin Pen) NOVOLOG *MILD* ALGORITHM WITH MEALS BEDTIME SC ; Start 12/28/18 at 12:30 Miscellaneous Information 1 ea NOTE XX ; Start 12/28/18 at 11:30 Glucose (Glutose) 15 gm Q15M PRN PO DECREASED GLUCOSE; Start 12/28/18 at 11:30 Glucose (Glutose) 22.5 gm Q15M PRN PO DECREASED GLUCOSE; Start 12/28/18 at 11:30 Dextrose (D50w Syringe) 25 ml Q15M PRN IV DECREASED GLUCOSE; Start 12/28/18 at 11:30 Dextrose (D50w Syringe) 50 ml Q15M PRN IV DECREASED GLUCOSE; Start 12/28/18 at 11:30 Glucagon (Glucagen) 1 mg Q15M PRN IM DECREASED GLUCOSE; Start 12/28/18 at 11:30 Glucose (Glutose) 15 gm Q15M PRN BUCCAL DECREASED GLUCOSE; Start 12/28/18 at 11:30 PRISCA GRESHAM Dec 29, 2018 16:48
[2018-12-29] MEDS: ATORVASTATIN 80 MG TAB PO SCH (20:33)
[2018-12-30] VITALS (7 sets, daily range): BP systolic 137–159; BP diastolic 81–85; PULSE 59–71; RESP 18
[2018-12-30] MEDS: ACCU-CHEK XX SCH (02:00)
--- NOTE | 2018-12-30 07:10 | CONS ---
Assessment/Plan Assessment/Plan Hospital Course 68 M c/ reported Hx of L MCA stroke, ? c/b epilepsy ?, who presents for evaluation of R hemiparesis and hemisensory loss following a reported seizure.. 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 MRI brain is negative for acute ischemia.. EEG was notable for L hemispheric slowing. P: OK to continue Keppra 750mg bid for now Ativan iv prn prolonged seizure or cluster PT/OT as necessary Continue medical management and supportive care per primary Will follow clinically Consultation Date/Type/Reason Admit Date/Time Dec 27, 2018 at 04:28 Type of Consult Neurology Reason for Consultation seizure Requesting Provider: KELY ACKERMAN NP Date/Time of Note DATE: 12/29/18 TIME: 19:06 24 HR Interval Summary Free Text/Dictation Continues acute care Exam Vital Signs Vitals Vital Signs Date Temp Pulse Resp B/P (MAP) Pulse Ox O2 O2 Flow FiO2 Time Delivery Rate 12/30/18 60 04:00 12/30/18 97.7 18 153/81 97 03:45 (105) 12/27/18 Room Air 06:10 12/27/18 2.0 02:40 Exam PE: Gen Appearance: No Apparent Distress HEENT: Normocephalic Cardiovascular: Regular rate Lungs: Clear bilaterally Abdomen: Soft Extremities: Dry NE: The patient was alert and oriented. Language was normal. Fund of knowledge was somewhat limited. Pupils were equal and reactive to light. There was no afferent pupillary defect. Visual shaver were normal. Funduscopic examination was limited. Extra-ocular movements were full. Ptosis was absent. There was no nystagmus. Facial sensation was reduced on the right.. Face was symmetric with normal strength. Hearing was intact. Palate movements were normal. Neck strength was normal. There was normal tongue bulk and speed of movement. Tone was normal. Muscle bulk was normal. I did not see fasciculations. Patient was weak on the right. Vibration sensation was reduced on the right. Temperature and pinprick sensation was reduced on the right. Rapid alternating movements were normal. There was no dysmetria. There was no intention tremor. Gait was deferred due to bedrest. Arm and leg reflexes were symmetric. Christian's sign was absent. Plantar responses were flexor. DIEUDONNE BRAMBILA Dec 30, 2018 07:10
[2018-12-30] MEDS: INSULIN ASPART [NOVOLOG] 3 ML PEN SC SCH ×2 (08:00→11:22)
[2018-12-30] MEDS: METOPROLOL 25 MG TAB PO SCH (08:06)
[2018-12-30] MEDS: LEVETIRACETAM 750 MG TAB PO SCH (08:06)
[2018-12-30] MEDS: ASPIRIN 325 MG TAB PO SCH (08:06)
--- NOTE | 2018-12-30 11:15 | DS ---
Date/Time of Note Date/Time of Note DATE: 12/30/18 TIME: 11:08 Discharge Summary Admission/Discharge Info Admit Date/Time Dec 27, 2018 at 04:28 Discharge Date/Time Discharge Diagnosis 68-year-old male with a history of CVA, seizure disorders, here with breakthr ough seizure/postictal right hemiplegia. 1. 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 2. Atrial septal defect versus patent foramen ovale. -Appreciate cardiology evaluation. -Recommended outpatient evaluation for closure at a tertiary center, case management order placed for referral. 3. 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 4. Hypertension -Now stable. -Continue beta-blockers 5. Coronary artery disease, status post CABG 09/2018 -Continue aspirin, statin, beta-blockers 6 Seizure disorders -Plan as outlined in #1 7. Acute kidney injury, likely hemodynamics: improved 8. Prediabetes with A1c 6.3 . Patient Condition: Stable Consults Cardiology : Sohail Alvarez MD Neurology: Donna Haque MD . Hospital Course 68-year-old male who had presented to the emergency room with seizures and subsequent right-sided hemiparesis. 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 He did undergo an echocardiogram with bubble study that was concerning for evidence of intra- atrial shunt cardiology recommended outpatient referral for PA for/ASD closure. This needs to be done at a tertiary center. The patient also came in with hypertensive emergency that has improved. He was monitored in-house and followed by both cardiology as well as neurology. MRI of the brain was negative for acute ischemia and EEG was notable for left-sided hemispheric slowing. Final neurology recommendation was to continue Keppra 750 mg twice a day and patient will follow up with his outpatient neurologist for continued care. I have also communicated to the employment case manager at [employer] that patient needs outpatient follow-up with cardiology and cardio thoracic surgery for PFO closure. Comorbidities were also aggressively managed as per Med records. Patient at this time has been evaluated and examined in detail and is assessed to be in stable condition and ready for discharge. . Home Meds Active Scripts Levetiracetam* (Keppra*) 750 Mg Tablet, 750 MG PO BID, #60 TAB 1 Refill Prov:TENZIN MEHTA. 12/30/18 Aspirin (Aspirin Lite-Coat) 325 Mg Tablet, 325 MG PO DAILY, #30 TAB 1 Refill Prov:TENZIN MEHTA. 12/30/18 Metoprolol Tartrate* (Lopressor*) 25 Mg Tab, 25 MG PO BID, #60 TAB 1 Refill Prov:TENZIN MEHTA . 12/30/18 Atorvastatin* (Atorvastatin*) 80 Mg Tablet, 80 MG PO HS, #30 TAB 1 Refill Prov:TENZIN MEHTA. 12/30/18 Baclofen* (Baclofen*) 10 Mg Tablet, 10 MG PO Q8 PRN for MUSCLE SPASMS, #30 TAB Prov:TENZIN MEHTA . 12/30/18 Reported Medications Pioglitazone Hcl* (Actos*) 15 Mg Tablet, 15 MG PO DAILY, #30 TAB 12/28/18 Metformin Hcl* (Metformin Hcl*) 500 Mg Tablet, 500 MG PO WITH BREAKFAST DINNE, #30 TAB 12/28/18 Discontinued Reported Medications Levetiracetam* (Keppra*) 500 Mg Tablet, 500 MG PO BID, TAB 12/28/18 Atorvastatin* (Atorvastatin*) 40 Mg Tablet, 40 MG PO QHS, #30 TAB 12/28/18 Metoprolol Tartrate* (Lopressor*) 25 Mg Tab, 12.5 MG PO BID, #60 TAB 12/28/18 Lisinopril* (Lisinopril*) 10 Mg Tablet, 10 MG PO DAILY, #30 TAB 12/28/18 Aspirin* (Aspirin* Chew) 81 Mg Tab.chew, 81 MG PO DAILY, TAB.CHEW 12/28/18 Follow-up Plan 1. Followup with your Primary care doctor as soon as possible. You need to be referred to a tertiary care center to see a cardiothoracic surgeon to close a hole in your heart. Give your primary care doctor the documentations from this admission 1. Realice el seguimiento con villeda mdico de atencin primaria lo antes posible. Usted necesita ser referido a un centro de cuidado terciario para beata a un cirujano cardiotorcico para cerrar un agujero en villeda corazn. Mauricio a villeda mdico de atencin primaria las documentaciones de esta admisin. 2. Please review your medications with your nurse before you leave. If you need new prescriptions please let him or her know. I also may have made changes to your medications, please look closely, and ask questions before you leave. Please also let your primary care doctor know. 2. Por favor revise yovanny medicamentos con villeda enfermera antes de irse. Si necesita recetas nuevas, por favor Aileene saber. Venkata podra shanna hecho cambios en tus medicamentos, por favor, jamil atentamente y haz preguntas antes de irte. Por favor, venkata Gallaghere saber a villeda mdico de atencin primaria. Primary Care Provider Not On Staff Doctor Time spent on discharge: > 30 minutes Pending Labs Laboratory Tests Test 12/29/18 11:51 12/29/18 20:29 12/30/18 07:51 Bedside Glucose 117 mg/dL (70-220) 139 mg/dL (70-220) 107 mg/dL (70-220) TENZIN MEHTA Dec 30, 2018 11:15
[2018-12-30] MEDS ORDERED: LEVE750T70 PO (11:17)
[2018-12-30] MEDS ORDERED: ASPI325T29 PO (11:17)
[2018-12-30] MEDS ORDERED: BACL10TA PO (11:17)
[2018-12-30] MEDS ORDERED: METO-448 PO (11:17)
[2018-12-30] MEDS ORDERED: ATOR-2 PO (11:17)
--- NOTE | 2018-12-30 11:40 | CONS ---
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 Will need to be evaluated for closure as outpt at tertiary center CAD s/p CABG 04/2018 HTN: very elevated on admission 217/109, now controlled H/o seizures -outpt referral for PFO/ASD closure -ASA 325mg with recent CABG -lipitor 80mg -metoprolol 25mg BID -seizure meds/management per neuro -otherwise ok for discharge Consultation Date/Type/Reason Admit Date/Time Dec 27, 2018 at 04:28 Initial Consult Date 12/27/18 Type of Consult Cardiology Requesting Provider: KELY ACKERMAN NP Date/Time of Note DATE: 12/30/18 TIME: 11:38 24 HR Interval Summary Free Text/Dictation No events. Possible d/c today Exam/Review of Systems Exam Vitals Vital Signs Date Temp Pulse Resp B/P (MAP) Pulse Ox O2 O2 Flow FiO2 Time Delivery Rate 12/30/18 71 08:41 12/30/18 98.4 18 137/85 95 07:41 (102) 12/27/18 Room Air 06:10 12/27/18 2.0 02:40 Constitutional: alert, oriented Psych: no complaints, nl mood/affect Head: normocephalic, atraumatic Neck: supple; No jvd Respiratory: clear to auscultation; No crackles/rales Cardiovascular: regular rate and rhythm; No edema Gastrointestinal: soft, non-tender Neurological: nl mental status, nl speech; No nl strength (right hemiparesis ) Results Result Diagram: 12/29/18 0459 12/29/18 0459 Results 24hrs Laboratory Tests Test 12/29/18 11:51 12/29/18 20:29 12/30/18 07:51 12/30/18 11:19 Bedside Glucose 117 139 107 114 Medications Medication Current Medications Levetiracetam (Keppra) 750 mg BID PO Last administered on 12/30/18at 08:06; Admin Dose 750 MG; Start 12/27/18 at 13:00 IV Flush (NS 3 ml) 3 ml PER PROTOCOL IV ; Start 12/27/18 at 05:00 Lorazepam (Ativan) 1 mg Q2H PRN IV SEIZURES Last administered on 12/27/18at 20:25; Admin Dose 1 MG; Start 12/27/18 at 05:00 Ondansetron HCl (Zofran Inj) 4 mg Q6H PRN IV NAUSEA/VOMITING; Start 12/27/18 at 05:00 Acetaminophen (Tylenol Supp) 650 mg Q6H PRN MA .PAIN 1-3 OR TEMP; Start 12/27/18 at 05:00 Hydralazine HCl (Apresoline) 10 mg Q4H PRN IV ELEVATED BLOOD PRESSURE; Start 12/27/18 at 05:00 Aspirin (Aspirin) 325 mg DAILY PO Last administered on 12/30/18at 08:06; Admin Dose 325 MG; Start 12/27/18 at 13:00 Atorvastatin Calcium (Lipitor) 80 mg HS PO Last administered on 12/29/18at 20:33; Admin Dose 80 MG; Start 12/27/18 at 21:00 Metoprolol Tartrate (Lopressor) 25 mg BID PO Last administered on 12/30/18at 08:06; Admin Dose 25 MG; Start 12/27/18 at 13:00 Diagnostic Test (Pha) (Accu-Chek) 1 ea 02 XX ; Start 12/29/18 at 02:00 Insulin Aspart (Novolog Insulin Pen) NOVOLOG *MILD* ALGORITHM WITH MEALS BEDTIME SC ; Start 12/28/18 at 12:30 Miscellaneous Information 1 ea NOTE XX ; Start 12/28/18 at 11:30 Glucose (Glutose) 15 gm Q15M PRN PO DECREASED GLUCOSE; Start 12/28/18 at 11:30 Glucose (Glutose) 22.5 gm Q15M PRN PO DECREASED GLUCOSE; Start 12/28/18 at 11:30 Dextrose (D50w Syringe) 25 ml Q15M PRN IV DECREASED GLUCOSE; Start 12/28/18 at 11:30 Dextrose (D50w Syringe) 50 ml Q15M PRN IV DECREASED GLUCOSE; Start 12/28/18 at 11:30 Glucagon (Glucagen) 1 mg Q15M PRN IM DECREASED GLUCOSE; Start 12/28/18 at 11:30 Glucose (Glutose) 15 gm Q15M PRN BUCCAL DECREASED GLUCOSE; Start 12/28/18 at 11:30 PRISCA GRESHAM Dec 30, 2018 11:40
--- NOTE | 2018-12-30 13:35 | CONS ---
Assessment/Plan Assessment/Plan Hospital Course 68 M c/ reported Hx of L MCA stroke, ? c/b epilepsy ?, who presents for evaluation of R hemiparesis and hemisensory loss following a reported seizure.. 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 MRI brain is negative for acute ischemia.. EEG was notable for L hemispheric slowing. P: OK to continue Keppra 750mg bid for now Ativan iv prn prolonged seizure or cluster PT/OT as necessary Continue medical management and supportive care per primary Will follow clinically Consultation Date/Type/Reason Admit Date/Time Dec 27, 2018 at 04:28 Type of Consult Neurology Reason for Consultation seizure; weakness Requesting Provider: KELY ACKERMAN NP Date/Time of Note DATE: 12/30/18 TIME: 13:35 24 HR Interval Summary Free Text/Dictation Continues acute care Exam Vital Signs Vitals Vital Signs Date Temp Pulse Resp B/P (MAP) Pulse Ox O2 O2 Flow FiO2 Time Delivery Rate 12/30/18 65 12:43 12/30/18 97.4 18 159/82 97 11:55 (107) 12/27/18 Room Air 06:10 12/27/18 2.0 02:40 Exam PE: Gen Appearance: No Apparent Distress HEENT: Normocephalic Cardiovascular: Regular rate Abdomen: Soft Extremities: Dry NE: The patient was alert and oriented. Language was normal. Fund of knowledge was adequate. Pupils were equal and reactive to light. There was no afferent pupillary defect. Visual shaver were normal. Funduscopic examination was limited. Extra-ocular movements were full. Ptosis was absent. There was no nystagmus. Facial sensation was normal. Face was symmetric with normal strength. Hearing was intact. Palate movements were normal. Neck strength was normal. There was normal tongue bulk and speed of movement. Tone was normal. Muscle bulk was normal. I did not see fasciculations. Arms and legs were mildly weak on the right. Vibration sensation was decreased on the right. Temperature and pinprick sensation was decreased on the right.. Rapid alternating movements were normal. There was no dysmetria. There was no intention tremor. Gait was deferred due to bedrest. Arm and leg reflexes were symmetric. Christian's sign was absent. Plantar responses were flexor. SURENDRA BECK NP Dec 30, 2018 13:35 DIEUDONNE BRAMBILA Dec 30, 2018 14:48
== END 2018-12-30 15:55 | disposition home health service (06) | DRG 92 ==
LOC: E/R 00:43 → 6WM 04:28
PROVIDERS: ADMIT Family Medicine; ATTEND Family Medicine
DX: G83.84 Todd's paralysis (postepileptic) (principal); N17.9 Acute kidney failure, unspecified; Q21.1 Atrial septal defect; G81.91 Hemiplegia, unspecified affecting right dominant side; G40.901 Epilepsy, unspecified, not intractable, with status epilepticus; I25.10 Atherosclerotic heart disease of native coronary artery without angina pectoris; I10 Essential (primary) hypertension; Z86.73 Personal history of transient ischemic attack (TIA), and cerebral infarction without residual deficits; I16.0 Hypertensive urgency; Z95.1 Presence of aortocoronary bypass graft; R73.03 Prediabetes
CPT/HCPCS: 36415; 70450; 70551; 71045; 80048; 80053; 80061; 80307; 81003; 82550; 82553; 82962; 83036; 83735; 84100; 84443; 84484; 85025; 85610; 85730; 92526; 92610; 93005; 93306; 95819; 96374; 97110; 97116; 97163; 97530; J1815; J1953; J2060; J7040